=== PATIENT | female | born 1960 | race Caucasian/White ===

== ENCOUNTER → 2016-05-23 | Outpatient (CLI) | payer BC ==
[~2016-05-23] MED LIST: AMLO-114 PO; ESCI1TAB10 PO; HYDC25 PO; MAGN400T6 PO; POTA10CA28 PO; PRLSR20 PO; PYRI100T4 PO; SIMV20TA2 PO; SYN75 PO
[2016-05-23 13:42] LABS: ALT/SGPT 36 U/L (12-78); AST/SGOT 26 U/L (15-37); BLOOD UREA NITROGEN 29 mg/dl (7-18); BUN/CREATININE RATIO 20.9 (10-20); CALCIUM 9.3 mg/dl (8.5-10.1); CARBON DIOXIDE 24 mmol/L (21-32); CHLORIDE 103 mmol/L (98-107); GLUCOSE 81 mg/dl (70-99); POTASSIUM 4.2 mmol/L (3.5-5.1); SODIUM 138 mmol/L (136-145)
[2016-05-23 13:53] LABS: ALB/GLOB RATIO 1.1 (0.9-2); ALKALINE PHOSPHATASE 53 U/L (45-117); CHOLESTEROL 165 mg/dl (0-200); CHOLESTEROL/HDL RATIO 3.2; HDL CHOLESTEROL 51 mg/dl; LDL CHOLESTEROL CALCULATED 84 mg/dl; TRIGLYCERIDES 151 mg/dl (0-150); VERY LOW DENSITY LIPOPROT CALC 30 mg/dl
== END | disposition home or self-care (01) ==
LOC: C.LABPVFM 10:21
PROVIDERS: ATTEND Family Medicine
DX: I10 Essential (primary) hypertension (principal); E03.9 Hypothyroidism, unspecified; E87.6 Hypokalemia; E78.5 Hyperlipidemia, unspecified; Z11.59 Encounter for screening for other viral diseases

== ENCOUNTER → 2016-08-13 | Outpatient (CLI) | payer BC ==
[~2016-08-13] MED LIST changes: +AMLO-110 PO; +ASCO500C43 PO; +ASPCH81X PO; +ATOR-24 PO; +CHOL20007 PO; +HYDR12.55 PO; +LEVO88TA3 PO; +LORA10CA10 PO; +MAGN250T3 PO; +MISCCAP80 PO; +MULT-506 PO; +PLQ200 PO; +SPIR25TA PO
[2016-08-13 12:44] LABS: BASO % 0.8 %; BASO ABS # 0.05 K/uL (0-0.2); COMPLETE YES; EOS % 3.7 %; HEMATOCRIT 40.9 % (37-47); IG% 0.3 %; LYMPH % 19.7 %; LYMPH ABS # 1.24 K/uL (1.2-3.4); MEAN CELL VOLUME 86.7 fL (80-100); MEAN CORPUSCULAR HEMOGLOBIN 29.4 pg (25-34); MEAN PLATELET VOLUME 9.9 fL (7.4-10.4); MONO % 10.8 %; NEUT % 64.7 %; PLATELET COUNT 241 K/uL (130-400); RED BLOOD COUNT 4.72 M/uL (4.2-5.4)
[2016-08-13 13:34] LABS: ALT/SGPT 28 U/L (12-78); AST/SGOT 21 U/L (15-37); BLOOD UREA NITROGEN 25 mg/dl (7-18); BUN/CREATININE RATIO 20.8 (10-20); CARBON DIOXIDE 27 mmol/L (21-32); CHLORIDE 105 mmol/L (98-107); GLUCOSE 154 mg/dl (70-99); POTASSIUM 3.7 mmol/L (3.5-5.1); SODIUM 140 mmol/L (136-145)
[2016-08-13 13:42] LABS: ALKALINE PHOSPHATASE 62 U/L (45-117)
== END | disposition home or self-care (01) ==
LOC: C.LAB1850 10:41
PROVIDERS: ATTEND Internal Medicine Rheumatology
DX: I10 Essential (primary) hypertension (principal); E03.9 Hypothyroidism, unspecified; F32.9 Major depressive disorder, single episode, unspecified; R79.89 Other specified abnormal findings of blood chemistry; M19.049 Primary osteoarthritis, unspecified hand; M06.00 Rheumatoid arthritis without rheumatoid factor, unspecified site; Z51.81 Encounter for therapeutic drug level monitoring; Z79.899 Other long term (current) drug therapy

== ENCOUNTER → 2016-08-27 | Outpatient (CLI) | payer BC ==
[2016-08-27 15:05] LABS: URINE PROTIEN/CREAT RATIO 0.2 (0-0.2); URINE TOTAL PROTEIN 10.5 mg/dl (0-11.9)
[2016-08-27 15:07] LABS: URINE APPEARANCE CLEAR (CLEAR); URINE BILIRUBIN NEG (NEG); URINE COLOR YELLOW; URINE NITRITE NEG (NEG); URINE PH 5.5 (4.5-7.5); URINE SPECIFIC GRAVITY 1.014 (1.000-1.030); UROBILINOGEN NEG (NEG); ZZUR CULT IF INDIC CLEAN CATCH NO
[2016-08-27 15:20] LABS: MANUAL MICROSCOPIC REQUIRED? NO; REVIEW REQ? NO
== END | disposition home or self-care (01) ==
LOC: C.LAB1850 12:20
PROVIDERS: ATTEND Internal Medicine Nephrology
DX: E87.6 Hypokalemia (principal)

== ENCOUNTER → 2016-09-03 | Outpatient (CLI) | payer BC ==
--- NOTE | 2016-09-03 11:20 | DIAGNOSTIC IMAGING REPORT ---
RENAL ULTRASOUND HISTORY: Renal cyst N28.1 Cyst of kidney, [id number] COMPARISON: 04/20/2013 FINDINGS: Right kidney: Maximum dimension 10.0 cm. 2.5 cm renal cyst. No evidence for hydronephrosis. Moderate increase in cortical echogenicity Left kidney: 10.8 cm maximum dimension. No evidence for hydronephrosis. 4 cm cyst at its mid pole. Mild increase in renal cortical echogenicity. Bladder: No bladder wall thickening. The bilateral ureteral jets were identified. IMPRESSION: Bilateral renal cyst minimally increased in size from the prior study. Mild cortical echogenicity suggesting a component of developing nonobstructive renal insufficiency. No evidence for hydronephrosis. Electronically signed by: Ras Scherer M.D. 09/03/2016 11:19 AM Dictated Date/Time: 09/03/2016 11:17 AM
== END | disposition home or self-care (01) ==
LOC: C.ULTR 10:34
PROVIDERS: ATTEND Internal Medicine Nephrology
DX: N28.1 Cyst of kidney, acquired (principal)

== ENCOUNTER → 2016-09-19 | Outpatient (CLI) | payer BC ==
[2016-09-19 12:45] LABS: CHOLESTEROL/HDL RATIO 3.3
== END ==
LOC: C.LABPVFM 09:22
PROVIDERS: ATTEND Family Medicine
DX: E78.5 Hyperlipidemia, unspecified (principal)

== ENCOUNTER → 2016-11-14 | Outpatient (CLI) | payer BC ==
[~2016-11-14] MED LIST changes: -AMLO-110 PO; -ASCO500C43 PO; -ASPCH81X PO; -ATOR-24 PO; -CHOL20007 PO; -HYDR12.55 PO; -LEVO88TA3 PO; -LORA10CA10 PO; -MAGN250T3 PO; -MISCCAP80 PO; -MULT-506 PO; -PLQ200 PO; -SPIR25TA PO
[2016-11-14 12:49] LABS: BASO % 0.7 %; BASO ABS # 0.04 K/uL (0-0.2); COMPLETE YES; EOS % 3.6 %; HEMATOCRIT 41.5 % (37-47); LYMPH % 23.9 %; LYMPH ABS # 1.34 K/uL (1.2-3.4); MEAN CORPUSCULAR HEMOGLOBIN 29.4 pg (25-34); MEAN CORPUSCULAR HGB CONC 33.7 g/dl (32-36); MEAN PLATELET VOLUME 9.5 fL (7.4-10.4); NEUT % 58.8 %; PLATELET COUNT 232 K/uL (130-400); RED BLOOD COUNT 4.77 M/uL (4.2-5.4); WHITE BLOOD COUNT 5.61 K/uL (4.8-10.8)
[2016-11-14 13:07] LABS: BLOOD UREA NITROGEN 22 mg/dl (7-18); BUN/CREATININE RATIO 18.7 (10-20); CALCIUM 9.4 mg/dl (8.5-10.1); CARBON DIOXIDE 25 mmol/L (21-32); CHLORIDE 103 mmol/L (98-107); GLUCOSE 81 mg/dl (70-99); MAGNESIUM 2.2 mg/dl (1.8-2.4); PHOSPHORUS 3.4 mg/dl (2.5-4.9); POTASSIUM 4.1 mmol/L (3.5-5.1); SODIUM 137 mmol/L (136-145)
== END | disposition home or self-care (01) ==
LOC: C.LABPVFM 10:00
PROVIDERS: ATTEND Internal Medicine Nephrology
DX: M06.00 Rheumatoid arthritis without rheumatoid factor, unspecified site (principal); Z79.899 Other long term (current) drug therapy; E87.6 Hypokalemia

== ENCOUNTER → 2017-01-21 | Outpatient (CLI) | payer BC ==
[~2017-01-21] MED LIST changes: +AMLO-110 PO; +ASCO500C43 PO; +ASPCH81X PO; +ATOR-24 PO; +CHOL20007 PO; +HYDR12.55 PO; +LEVO88TA3 PO; +LORA10CA10 PO; +MAGN250T3 PO; +MISCCAP80 PO; +MULT-506 PO; +PLQ200 PO; +SPIR25TA PO
--- NOTE | 2017-01-21 16:08 | MAMMOGRAPHY REPORT ---
BILATERAL DIGITAL SCREENING MAMMOGRAM TOMOSYNTHESIS WITH CAD: 01/21/2017 CLINICAL HISTORY: Routine screening. Patient has no complaints. TECHNIQUE: Breast tomosynthesis in addition to standard 2D mammography was performed. Current study was also evaluated with a Computer Aided Detection (CAD) system. COMPARISON: Comparison is made to exams dated: 06/11/2014 mammogram, 06/12/2013 mammogram, 06/09/2012 mamm ogram, 06/04/2011 mammogram, 06/02/2010 mammogram, and 05/30/2009 mammogram - [facility]. BREAST COMPOSITION: There are scattered areas of fibroglandular density in both breasts. FINDINGS: There is minimal vascular calcification in the breasts. No suspicious mass, architectural distortion or cluster of suspicious microcalcifications is seen. IMPRESSION: ACR BI-RADS CATEGORY 1: NEGATIVE There is no mammographic evidence of malignancy. A 1 year screening mammogram is recommended. The pa tient will receive written notification of the results. Approximately 10% of breast cancers are not detected with mammography. A negative mammographic report should not delay biopsy if a clinically suggestive mass is present. Joanie Jefferson M.D. ay/:01/21/2017 15:47:11 Hand I Cutter: Namita VILLALBA(Barbara)(M), [facility] letter sent: Normal 1/2 BI-RADS Code: ACR BI-RADS Category 1: Negative
== END | disposition home or self-care (01) ==
LOC: C.MAMM 14:57
PROVIDERS: ATTEND Obstetrics & Gynecology
DX: Z12.31 Encounter for screening mammogram for malignant neoplasm of breast (principal)

== ENCOUNTER → 2017-03-19 | Outpatient (CLI) | payer BC ==
[~2017-03-19] MED LIST changes: -AMLO-114 PO; -ESCI1TAB10 PO; -HYDC25 PO; -MAGN400T6 PO; -PRLSR20 PO; -PYRI100T4 PO; -SIMV20TA2 PO; -SYN75 PO
[2017-03-19 12:53] LABS: ALT/SGPT 38 U/L (12-78); AST/SGOT 21 U/L (15-37); BLOOD UREA NITROGEN 20 mg/dl (7-18); BUN/CREATININE RATIO 16.2 (10-20); CARBON DIOXIDE 27 mmol/L (21-32); CHLORIDE 104 mmol/L (98-107); CREATININE 1.24 mg/dl (0.60-1.20); GLUCOSE 75 mg/dl (70-99); POTASSIUM 3.9 mmol/L (3.5-5.1); SODIUM 139 mmol/L (136-145)
[2017-03-19 13:04] LABS: ALKALINE PHOSPHATASE 54 U/L (45-117); CHOLESTEROL 162 mg/dl (0-200); CHOLESTEROL/HDL RATIO 2.7; HDL CHOLESTEROL 61 mg/dl; LDL CHOLESTEROL CALCULATED 67 mg/dl; TRIGLYCERIDES 171 mg/dl (0-150); VERY LOW DENSITY LIPOPROT CALC 34 mg/dl
== END | disposition home or self-care (01) ==
LOC: C.LABPVFM 09:43
PROVIDERS: ATTEND Family Medicine
DX: I10 Essential (primary) hypertension (principal); E03.9 Hypothyroidism, unspecified; E78.5 Hyperlipidemia, unspecified; R19.7 Diarrhea, unspecified

== ENCOUNTER → 2017-04-12 | Outpatient (CLI) | payer BC ==
[2017-04-12 12:36] LABS: CREATININE, URINE 85.2 mg/dl; URINE PROTIEN/CREAT RATIO 0.1 (0-0.2); URINE TOTAL PROTEIN 10.7 mg/dl (0-11.9)
[2017-04-12 12:41] LABS: URINE APPEARANCE CLEAR (CLEAR); URINE BILIRUBIN NEG (NEG); URINE COLOR YELLOW; URINE NITRITE NEG (NEG); URINE PH 6.5 (4.5-7.5); URINE SPECIFIC GRAVITY 1.018 (1.000-1.030); UROBILINOGEN NEG (NEG); ZZUR CULT IF INDIC CLEAN CATCH NO
[2017-04-12 12:44] LABS: MANUAL MICROSCOPIC REQUIRED? NO; REVIEW REQ? NO
== END | disposition home or self-care (01) ==
LOC: C.LAB1850 10:06
PROVIDERS: ATTEND Internal Medicine Nephrology
DX: N28.1 Cyst of kidney, acquired (principal)

== ENCOUNTER → 2017-04-15 | Outpatient (CLI) | payer BC ==
--- NOTE | 2017-04-15 13:13 | DIAGNOSTIC IMAGING REPORT ---
EXAMINATION: RENAL ULTRASOUND CLINICAL HISTORY: N28.1 Cyst of kidney, acquired COMPARISON STUDY: 09/03/2016 FINDINGS: The right kidney measures 9.1 cm. The left kidney measures 10.5 cm. There is no evidence of hydronephrosis. There is a 22 mm upper pole right renal cyst. There is a 4.6 cm left renal cyst. No bladder abnormalities are visualized. Bilateral ureteral jets were visualized. IMPRESSION : Bilateral renal cysts with slight interval enlargement of the dominant 4.6 cm lower pole left renal cyst Electronically signed by: Carlos Tom M.D. 04/15/2017 1:11 PM Dictated Date/Time: 04/15/2017 1:10 PM
== END | disposition home or self-care (01) ==
LOC: C.ULTR 12:35
PROVIDERS: ATTEND Internal Medicine Nephrology
DX: N28.1 Cyst of kidney, acquired (principal)

== ENCOUNTER → 2017-06-17 | Outpatient (CLI) | payer BC, OTHER ==
[2017-06-17 12:14] LABS: BASO % 1.1 %; BASO ABS # 0.07 K/uL (0-0.2); EOS ABS # 0.19 K/uL (0-0.5); HEMATOCRIT 39.9 % (37-47); HEMOGLOBIN 13.7 g/dL (12.0-16.0); IG# 0.01 K/uL (0.00-0.02); LYMPH % 22.5 %; LYMPH ABS # 1.44 K/uL (1.2-3.4); MEAN CELL VOLUME 87.5 fL (80-100); MEAN CORPUSCULAR HGB CONC 34.3 g/dl (32-36); MEAN PLATELET VOLUME 9.6 fL (7.4-10.4); MONO % 11.9 %; MONO ABS # 0.76 K/uL (0.11-0.59); NEUT % 61.3 %; NEUT ABS # 3.93 K/uL (1.4-6.5); PLATELET COUNT 234 K/uL (130-400); RED CELL DISTRIBUTION WIDTH CV 13.6 % (11.5-14.5); RED CELL DISTRIBUTION WIDTH SD 43.3 fL (36.4-46.3)
[2017-06-17 12:50] LABS: ALT/SGPT 41 U/L (12-78); AST/SGOT 25 U/L (15-37); CREATININE 1.12 mg/dl (0.60-1.20)
[2017-06-17 12:52] LABS: ALKALINE PHOSPHATASE 55 U/L (45-117)
== END | disposition home or self-care (01) ==
LOC: C.LABPVFM 10:26
PROVIDERS: ATTEND Internal Medicine Rheumatology
DX: M19.049 Primary osteoarthritis, unspecified hand (principal); M06.00 Rheumatoid arthritis without rheumatoid factor, unspecified site; N18.9 Chronic kidney disease, unspecified; Z79.899 Other long term (current) drug therapy

== ENCOUNTER → 2017-09-12 | Outpatient (CLI) | payer OTHER ==
[2017-09-12 12:57] LABS: ALBUMIN 3.9 gm/dl (3.4-5.0); ALT/SGPT 45 U/L (12-78); AST/SGOT 33 U/L (15-37); BLOOD UREA NITROGEN 24 mg/dl (7-18); CALCIUM 9.2 mg/dl (8.5-10.1); CARBON DIOXIDE 27 mmol/L (21-32); CHOLESTEROL 144 mg/dl (0-200); CREATININE 1.17 mg/dl (0.60-1.20); GLUCOSE 79 mg/dl (70-99); SODIUM 138 mmol/L (136-145)
[2017-09-12 13:08] LABS: ALKALINE PHOSPHATASE 47 U/L (45-117); LDL CHOLESTEROL CALCULATED 63 mg/dl; TOTAL PROTEIN 7.9 gm/dl (6.4-8.2)
== END | disposition home or self-care (01) ==
LOC: C.LABPVFM 09:24
PROVIDERS: ATTEND Family Medicine
DX: I12.9 Hypertensive chronic kidney disease with stage 1 through stage 4 chronic kidney disease, or unspecified chronic kidney disease (principal); E03.9 Hypothyroidism, unspecified; E78.5 Hyperlipidemia, unspecified; K21.9 Gastro-esophageal reflux disease without esophagitis; N18.9 Chronic kidney disease, unspecified; M06.00 Rheumatoid arthritis without rheumatoid factor, unspecified site

== ENCOUNTER → 2017-12-18 | Outpatient (CLI) | payer OTHER ==
[~2017-12-18] MED LIST changes: -AMLO-110 PO; +AMLO5TAB3 PO
--- NOTE | 2017-12-18 10:55 | DIAGNOSTIC IMAGING REPORT ---
RIGHT HAND 3 VIEWS CLINICAL HISTORY: Osteoporosis. FINDINGS: 3 views of the right hand are compared to study dated 07/21/2015. The skeletal structures are osteopenic. No fracture is seen. Moderate osteoarthritic change is present at the first carpometacarpal articulation where there is bony overgrowth, sclerosis, and mild subluxation. Osteoarthritis is also seen at the second carpal metacarpal joint. Mild osteoarthritic change is seen involving the first metacarpophalangeal joint as well as the interphalangeal joints (distal greater than proximal). Mild erosive osteoarthritis is seen involving the distal interphalangeal joints. Mild soft tissues along is noted in the fingers. IMPRESSION: Osteopenia and arthritic change as above with no acute bony abnormality identified. This has modestly progressed from the 2016 examination. Electronically signed by: Asad Loza M.D. 12/18/2017 10:53 AM Dictated Date/Time: 12/18/2017 10:51 AM
--- NOTE | 2017-12-18 11:37 | DIAGNOSTIC IMAGING REPORT ---
L HAND MIN 3 VIEWS ROUTINE CLINICAL HISTORY: M81.0 Post-menopausal osteoporosis [id number] COMPARISON STUDY: None. FINDINGS: Mild periarticular osteopenia. No acute fracture or dislocation. No aggressive changes present. Severe osteoarthritis within the majority of the DIP joints with large marginal osteophytes. There is mild osteoarthritis within the PIP joints. Moderate osteoarthritis within the first carpometacarpal joint demonstrated by joint space narrowing and marginal osteophytes. IMPRESSION: 1. 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 2. No erosive changes present. 3. Mild periarticular osteopenia. Electronically signed by: Geovanny Latham M.D. 12/18/2017 11:35 AM Dictated Date/Time: 12/18/2017 11:33 AM
== END | disposition home or self-care (01) ==
LOC: C.RAD1850 10:41
PROVIDERS: ATTEND Internal Medicine Rheumatology
DX: M81.0 Age-related osteoporosis without current pathological fracture (principal); M19.042 Primary osteoarthritis, left hand; M85.841 Other specified disorders of bone density and structure, right hand